=== PATIENT | male | born 1990 | race Caucasian/White ===

== ENCOUNTER 2018-11-07 03:43 | Emergency (ER) | payer MEDICARE, MEDICAID ==
[~2018-11-07] VITALS: Ht 175.3 cm; Wt 74.8 kg
[2018-11-07 03:59] VITALS: BP 108/66
--- NOTE | 2018-11-07 03:59 | NUR ---
ED Nurse Note: Walk in patient reports ear pain radiating to parts of his head.
[2018-11-07] MEDS ORDERED: IBUPROFEN600 MG ORAL (04:35)
[2018-11-07] MEDS ORDERED: AMOXICILLIN500 MG ORAL (04:35)
[2018-11-07 04:40] VITALS: BP 108/66
--- NOTE | 2018-11-07 04:40 | NUR ---
ED Nurse Note: Patient is cleared for discharge by ERMD, patient is ambulatory with steady gait, A&Ox4, PAtient discharged to home with all belongings, ID band removed.
--- NOTE | 2018-11-07 05:06 | Emergency Room Report ---
History of Present Illness General Chief Complaint: Earache Source: Patient Present Illness HPI Patient presents with complaints of left ear pain Reports that it started earlier this evening he thinks he might have gotten some water inside there Denies any trauma complains of a low-grade fever earlier Denies any posterior neck pain or photophobia He felt that it was some pain radiation to his left lower dental area Denies any visual change denies any pain to the auricular region or mastoid area Allergies: Coded Allergies: GLUTEN (Verified Allergy, Unknown, 11/07/18) LACTOSE (Verified Allergy, Unknown, 11/07/18) Patient History Past Medical History: see triage record Pertinent Family History: none Reviewed Nursing Documentation: PMH: Agreed; PSxH: Agreed Nursing Documentation-PMH Past Medical History: No History, Except For Hx Cardiac Problems: No - celiac disease Review of Systems All Other Systems: negative except mentioned in HPI Physical Exam Vital Signs Date Time Temp Pulse Resp B/P (MAP) Pulse Ox O2 Delivery O2 Flow Rate FiO2 11/07/18 03:51 97.3 72 16 108/66 98 Room Air Sp02 EP Interpretation: reviewed, normal General Appearance: no apparent distress Head: normocephalic, atraumatic Eyes: bilateral eye PERRL, bilateral eye EOMI ENT: other - Left tympanic membranes was erythematous and mildly bulging, canal otherwise clear no obvious perforation Neck: supple Respiratory: lungs clear, no retraction, no accessory muscle use Cardiovascular #1: regular rate, rhythm Musculoskeletal: normal inspection Neurologic: other - Mildly anxious Skin: normal color, no rash Lymphatic: no adenopathy Medical Decision Making Diagnostic Impression: Primary Impression: otitis media ER Course Patient has findings consistent with otitis media Initial antibiotic was initiated here given the late presentation Patient provided with antibiotics He appears to be somewhat agitated and significantly concerned I discussed that this is appropriate initial management and if discomfort persists follow-up with primary physician for further ENT follow-up will be appropriate Last Vital Signs Date Time Temp Pulse Resp B/P (MAP) Pulse Ox O2 Delivery O2 Flow Rate FiO2 11/07/18 04:40 97.3 79 16 108/66 98 Room Air Status: improved Disposition: HOME, SELF-CARE Condition: Improved Scripts Amoxicillin* (AMOXIL*) 500 Mg Capsule 500 MG ORAL THREE TIMES A DAY, #21 CAP Prov: Tiffanie Chávez DO 11/07/18 Ibuprofen* (MOTRIN*) 600 Mg Tablet 600 MG ORAL Q8H PRN for For Pain, #20 TAB 0 Refills Prov: Tiffanie Chávez DO 11/07/18 Referrals: [facility] Patient Instructions: Otitis Media, Adult, [id number] Additional Instructions: Patient is provided with the discharge instructions notified to follow up with primary doctor in the next 2-3 days otherwise return to the er with any worsening symptoms. Please note that this report is being documented using [employer] technology. This can lead to erroneous entry secondary to incorrect interpretation by the dictating instrument. Tiffanie Chávez DO Nov 07, 2018 05:06
== END 2018-11-07 04:40 | disposition home or self-care (01) ==
LOC: EMR 04:03
DX: H66.92 Otitis media, unspecified, left ear (principal); Z88.8 Allergy status to other drugs, medicaments and biological substances
CPT/HCPCS: 99282